=== PATIENT | female | born 1985 | race Asian ===

== ENCOUNTER 2024-05-27 06:47 | Emergency (ER) | payer OTHER ==
[~2024-05-27] VITALS: Ht 152.4 cm; Wt 61.4 kg
[2024-05-27 06:48] VITALS: TEMP 99.4
[2024-05-27] MEDS ORDERED: BUPR-514 PO (07:08)
[2024-05-27] MEDS ORDERED: BUSP15 PO (07:08)
[2024-05-27] MEDS ORDERED: SERT-162 PO (07:08)
[2024-05-27 08:05] LABS: BASOPHILS % (AUTO) 0.6 % (0.0-2.0); EOSINOPHILS % (AUTO) 0 % (1.0-6.0); HEMATOCRIT 45.4 % (36-46); HEMOGLOBIN 15.2 g/dL (12.0-16.0); LYMPHOCYTES # (AUTO) 0.5 K/uL (1.0-4.8); LYMPHOCYTES % (AUTO) 5.3 % (22.0-44.0); MEAN CORPUSCULAR HEMOGLOBIN 31.6 pg (26.0-34.0); MEAN CORPUSCULAR HGB CONC 33.6 G/dL (31.0-37.0); MEAN CORPUSCULAR VOLUME 94 fL (80-100); MONOCYTES # (AUTO) 0.3 K/uL (0.1-1.0); MONOCYTES % (AUTO) 2.9 % (2.0-9.0); NEUTROPHILS # (AUTO) 9.1 K/uL (1.8-7.7); PLATELET COUNT (AUTO) 397 K/uL (150-450); RED BLOOD CELL COUNT(AUTO) 4.82 MIL/uL (4.00-5.20); RED CELL DISTRIBUTION WIDTH 13.8 % (11.5-14.5); WHITE BLOOD COUNT (AUTO) 9.9 K/uL (4.5-11.0)
[2024-05-27 08:07] LABS: NEUTROPHILS % (AUTO) 91.2 % (40.0-70.0)
[2024-05-27 08:14] LABS: ANION GAP 20 mmol/L (8-16); CALCIUM, TOTAL 9.1 mg/dL (8.8-10.5); CARBON DIOXIDE 16 mmol/L (22-29); CHLORIDE 99 mmol/L (98-107); CREATININE 0.88 mg/dL (0.60-1.30); GLOMERULAR FILTR. RATE CALC > 60 mL/min (>60); GLUCOSE,RANDOM 77 mg/dL (70-110); POTASSIUM 4.3 mmol/L (3.5-5.1); SODIUM SERUM 135 mmol/L (136-145); UREA NITROGEN, BLOOD 15 mg/dL (7-18)
[2024-05-27 08:25] LABS: ALANINE AMINOTRANSFERASE 17 U/L (12-78); ALBUMIN 4.4 g/dL (3.4-5.0); ALKALINE PHOSPHATASE 108 U/L (46-116); ASPARTATE AMINOTRANSFERASE 17 U/L (15-37); BILIRUBIN,TOTAL 1.3 mg/dL (0.1-1.0); HCG,QUANTITATIVE 1 mIU/mL (0-6); LIPASE 17 U/L (16-77); TOTAL PROTEIN, SERUM 8.4 g/dL (6.4-8.2)
[2024-05-27 08:35] LABS: RBC MORPHOLOGY COMMENT NORMAL RBC MORPH
[2024-05-27] MEDS: ONDANSETRON 4 MG TABLET PO ONE (08:55)
[2024-05-27] MEDS: SODIUM CHLORIDE 0.9% 1,000 ML IV ONE (09:14)
[2024-05-27 10:30] LABS: APPEARANCE,URINE CLEAR (CLEAR); BILIRUBIN,URINE NEGATIVE (NEGATIVE); COLOR,URINE LIGHT YELLOW (YELLOW); GLUCOSE, URINE (UA) NEGATIVE (NEGATIVE); KETONES,URINE =>150 mg/dL (NEGATIVE); LEUKOCYTE ESTERASE ,URINE NEGATIVE (NEGATIVE); NITRATE,URINE NEGATIVE (NEGATIVE); OCCULT BLOOD,URINE SMALL (NEGATIVE); PH,URINE 5.5 (5.0-8.0); PROTEIN,URINE 30-70 mg/dL (NEGATIVE); SPECIFIC GRAVITIY, URINE 1.026 (1.003-1.030); UROBILINOGEN,URINE <=1.0 mg/dL (<=1.0)
[2024-05-27 10:48] LABS: RBC,URINE 0-2 /HPF (0-2)
[2024-05-27 10:49] LABS: BACTERIA,URINE None Seen /HPF (None Seen); SQUAMOUS EPITHELIAL CELL,UR Moderate /LPF (None Seen); WBC,URINE None Seen /HPF (0-5)
[2024-05-27] MEDS: PROCHLORPERAZINE EDISYLATE 5 MG/ML 2 ML VIAL IVP ONE (10:53)
[2024-05-27 11:02] LABS: LACTIC ACID 0.9 mmol/L (0.4-2.0)
[2024-05-27] MEDS: DEXTROSE 5%-0.9% SODIUM CHL 1,000 ML IV ONE (11:41)
[2024-05-27] MEDS ORDERED: ONDA-104 PO (13:10)
[2024-05-27 14:14] VITALS: BP 126/77; PULSE 89; RESP 16; O2SAT 98
== END 2024-05-27 19:04 | disposition home or self-care (01) ==
LOC: EMS 06:47
DX: R11.2 Nausea with vomiting, unspecified (principal)
CPT/HCPCS: 99283; 96374; 96361; 80048; 80076; 82009; 83605; 83690; 84702; 85025; 81001; 36415; G0480; Q0162; J0780; J7042; J7030